=== PATIENT | female | born 1940 | race American Indian/Alaskan Native ===

== ENCOUNTER 2019-03-05 09:01 | Inpatient (IN) | payer MEDICARE ==
--- NOTE | 2019-03-05 09:56 | Emergency Department Report ---
ED Abdominal Pain HPI - General Chief Complaint: Tube Replacement Stated Complaint: FEEDING TUBE HAS DISCHARGE/PAINFUL Time Seen by Provider: 03/05/19 09:39 Source: patient Mode of arrival: Stretcher Limitations: No Limitations - History of Present Illness Initial Comments: 79-year-old female with past medical history throat cancer, hypertension, hypoth yroidism, and PEG tube feeding dependence since 2018 presents to the hospital complaining of drainage from PEG tube stoma and skin irritation. Daughter at bedside is concerned about infection. They were [facility] ago for the same. At that time patient was have a brownish red discharge from the stoma. Now patient is having brownish red and bilious discharge from the stoma site. Pain complains of 10/10 irritation to the skin at the area as well as left upper quadrant pain. Patient occasionally drinks water by mouth but is PEG dependent tube feeds and meds. She did receive an infusion of her tube feeds throughout the night last night. She is scheduled to have the PEG tube checked with Gastrografin study on March 17. Severity scale (0 -10): 10 - Related Data Allergies Allergy/AdvReac Type Severity Reaction Status Date / Time No Known Allergies Allergy Verified 03/05/19 10:06 ED Review of Systems ROS: Stated complaint: FEEDING TUBE HAS DISCHARGE/PAINFUL Other details as noted in HPI Comment: All other systems reviewed and negative ED Past Medical Hx - Past Medical History Previous Medical History?: Yes Hx Hypertension: Yes Hx Heart Attack/AMI: Yes (2012) Hx of Cancer: Yes (throat) Additional medical history: Hypothyroidism - Surgical History Past Surgical History?: Yes Additional Surgical History: Peg tube 2018 - Social History Smoking Status: Former Smoker Substance Use Type: None ED Physical Exam - General Limitations: No Limitations - Other Other exam information: General: No acute distress Head: Atraumatic Eyes: normal appearance ENT: Moist mucous membranes Neck: Normal appearance, no midline tenderness Chest: Clear to auscultation bilaterally CV: Regular rate and rhythm Abdomen: Soft, normal bowel sounds,upper midline vertical scar. LUQ upper quadrant feeding tube with erythematous exoriated skin at area of peg bumper. Tendereness to LUQ lateral to feeding tube. no rebound or garuding Back: Normal inspection Extremity: Normal inspection infection, full range of motion Neuro: Alert no facial asymmetry, speech clear, no gross motor sensory deficit Psych: Appropriate behavior Skin: No rash ED Course Vital Signs 03/05/19 03/05/19 09:32 11:30 Temperature 98.1 F Pulse Rate 85 83 Respiratory 20 Rate Blood Pressure 134/71 117/65 [Right] O2 Sat by Pulse 99 99 Oximetry - Consultations Consultation #1: 03/05/19 case d/w Dr Pabon (GI) who suggested surgery consult given that it is a gj tube case d/w Dr Hendrix who suggests deflating balloon ED Medical Decision Making - Lab Data Result diagrams: 03/05/19 11:00 03/05/19 09:53 - Radiology Data Radiology results: report reviewed ct abd/pelvis IV contrast: reviewed, see report - Medical Decision Making gj tube stoma leakage with nonobstructing small bowel intussuseption GI Dr Pabon came to bedside they do not place or mangage gj tubes bumper secured to skin with tape (antibiotic ointment/guaze and skin tape applied to bumper) balloon deflated pt to be admitted ivf for dehydration provided. - Differential Diagnosis tube displacement, infection, obstruction Critical Care Time: No Critical care attestation.: If time is entered above; I have spent that time in minutes in the direct care o f this critically ill patient, excluding procedure time. ED Disposition Clinical Impression: Malfunctioning jejunostomy tube, Intussusception intestine, Dehydration, Skin excoriation Disposition: OP ADMIT IP TO THIS HOSP Is pt being admited?: Yes Condition: Stable Time of Disposition: 15:50 (Dr oleary/hosp)
[2019-03-05 11:15] LABS: Basophils % (Auto) 0.4 % (0.0-1.8); Eosinophils # (Auto) 0.1 K/mm3 (0.0-0.4); Eosinophils % (Auto) 1.6 % (0.0-4.3); Hematocrit 36.2 % (30.3-42.9); Hemoglobin 12.7 gm/dl (10.1-14.3); Lymphocytes # (Auto) 0.7 K/mm3 (1.2-5.4); Mean Corpuscular HGB Conc 35 % (30-34); Mean Corpuscular Volume 106 fl (79-97); Monocytes # (Auto) 0.6 K/mm3 (0.0-0.8); Monocytes % (Auto) 8.8 % (0.0-7.3); Platelet Count 156 K/mm3 (140-440); Red Blood Count 3.42 M/mm3 (3.65-5.03); Red Cell Distribution Width 12.5 % (13.2-15.2)
[2019-03-05 11:30] LABS: Calcium 9.8 mg/dL (8.4-10.2)
[2019-03-05] MEDS ORDERED: SODIUM CHLORIDE 0.9% 1000 ML 1,000 ML IV ONE (11:40)
[2019-03-05] MEDS ORDERED: SODIUM CHLORIDE 0.45% 1000 ML 1,000 ML IV SCH (12:00)
--- NOTE | 2019-03-05 12:49 | Cat Scan Report ---
CT abdomen pelvis w con INDICATION: luq pain, bilious d/c for peg stoma site, skin red. TECHNIQUE: All CT scans at this location are performed using the following dose modulation technique: Automated exposure control. CONTRAST: Omnipaque 300, 60 cc IV injection. COMPARISON: None available. CT ABDOMEN: Evaluation the parenchymal organs demonstrates benign-appearing renal cysts and a subcent imeter low-density splenic lesion. Prominent dilatation of the pancreatic duct measures 8 mm centrall y. There is mild pancreatic atrophy. A GJ tube has its balloon in the proximal jejunum and the tip within the small bowel more distally. T here is a focal intussusception just proximal to the balloon which is nonobstructing. The balloon dis tends the jejunal cavity. CT PELVIS: 2.3 cm left ovarian cyst. Negative for pelvic mass, fluid collection or inflammation. A sm all amount of pelvic free fluid is present. IMPRESSION: 1. GJ tube with tip at the mid/distal small bowel. A focal, nonobstructing intussusception is seen ad jacent to the balloon which distends the jejunal cavity. 2. Prominent dilatation of the pancreatic duct of uncertain etiology. The most likely etiology is non visualized tumor or central stenosis. Signer Name: Keron Thomas MD Signed: 03/05/2019 12:45 PM Workstation Name: [id number]
--- NOTE | 2019-03-05 20:24 | History and Physical Report ---
History of Present Illness Date of examination: 03/05/19 Date of admission: 03/05/19 15:58 Chief complaint: Abdominal pain for 3 days Malfunctioning GJ tube 3 days History of present illness: 79-year-old female with history of hypertension, hypothyroidism and GJ tube because of severe dysphagia following throat cancer chemotherapy and radiation comes in for malfunction of GJ tube. Patient has been having pain at the GJ tube site and distally whenever food was being sent in. Also some discharge from GJ tube site which is consistent with bile. No fever or chills. Patient has periumbilical and left upper quadrant pain. Pain is about 6 on a scale of 1-10. No chest pain or shortness of breath. Past Medical History Previous Medical History?: Yes Hypertension: Yes Heart Attack/AMI: Yes (2011) Cancer: Yes (throat)--completed chemotherapy and radiation therapy-in remission Additional medical history: Hypothyroidism Surgical History Past Surgical History?: Yes Additional Surgical History: Peg tube followed by GJ tube and 2018. Patient had problems with initial PEG tube and there was drainage at the site. Social History Smoking Status: Former Smoker Substance Use Type: None Family history HTN Review of Systems ROS: Stated complaint: FEEDING TUBE HAS DISCHARGE/PAINFUL Other details as noted in HPI Comment: All other systems reviewed and negative Medications and Allergies Allergies Allergy/AdvReac Type Severity Reaction Status Date / Time No Known Allergies Allergy Verified 03/05/19 10:06 Exam - Constitutional Vitals: Temp Pulse Resp BP Pulse Ox 98.1 F 83 20 117/65 99 03/05/19 09:32 03/05/19 11:30 03/05/19 09:32 03/05/19 11:30 03/05/19 11:30 General appearance: Present: no acute distress, well-nourished - EENT Eyes: Present: PERRL ENT: hearing intact, clear oral mucosa - Neck Neck: Present: supple, normal ROM - Respiratory Respiratory effort: normal Respiratory: bilateral: CTA - Cardiovascular Heart rate: 78 Rhythm: regular Heart Sounds: Present: S1 & S2. Absent: rub, click - Extremities Extremities: no ischemia, pulses intact, pulses symmetrical, No edema Peripheral Pulses: within normal limits - Abdominal General gastrointestinal: Present: soft, non-tender, non-distended, normal bowel sounds Localized gastrointestinal: tender: LUQ (No guarding), epigastric periumbilical (Drainage from GJ tube site) Female genitourinary: Present: normal - Integumentary Integumentary: Present: clear, warm, dry - Musculoskeletal Musculoskeletal: generalized weakness - Psychiatric Psychiatric: appropriate mood/affect, intact judgment & insight - Neurologic Neurologic: CNII-XII intact, moves all extremities - Allied Health Allied health notes reviewed: nursing, case management Results - Labs CBC & Chem 7: 03/05/19 11:00 03/05/19 09:53 Labs: Laboratory Last Values WBC 6.4 K/mm3 (4.5-11.0) 03/05/19 11:00 RBC 3.42 M/mm3 (3.65-5.03) L 03/05/19 11:00 Hgb 12.7 gm/dl (10.1-14.3) 03/05/19 11:00 Hct 36.2 % (30.3-42.9) 03/05/19 11:00 MCV 106 fl (79-97) H 03/05/19 11:00 MCH 37 pg (28-32) H 03/05/19 11:00 MCHC 35 % (30-34) H 03/05/19 11:00 RDW 12.5 % (13.2-15.2) L 03/05/19 11:00 Plt Count 156 K/mm3 (140-440) 03/05/19 11:00 Lymph % (Auto) 11.0 % (13.4-35.0) L 03/05/19 11:00 [place] % (Auto) 8.8 % (0.0-7.3) H 03/05/19 11:00 Eos % (Auto) 1.6 % (0.0-4.3) 03/05/19 11:00 Baso % (Auto) 0.4 % (0.0-1.8) 03/05/19 11:00 Lymph # 0.7 K/mm3 (1.2-5.4) L 03/05/19 11:00 [place] # 0.6 K/mm3 (0.0-0.8) 03/05/19 11:00 Eos # 0.1 K/mm3 (0.0-0.4) 03/05/19 11:00 Baso # 0.0 K/mm3 (0.0-0.1) 03/05/19 11:00 Seg Neutrophils % 78.2 % (40.0-70.0) H 03/05/19 11:00 Seg Neutrophils # 5.0 K/mm3 (1.8-7.7) 03/05/19 11:00 Sodium 148 mmol/L (137-145) H 03/05/19 09:53 Potassium 4.2 mmol/L (3.6-5.0) 03/05/19 09:53 Chloride 103.7 mmol/L (98-107) 03/05/19 09:53 Carbon Dioxide 21 mmol/L (22-30) L 03/05/19 09:53 Anion Gap 28 mmol/L 03/05/19 09:53 BUN 42 mg/dL (7-17) H 03/05/19 09:53 Creatinine 1.4 mg/dL (0.7-1.2) H 03/05/19 09:53 Estimated GFR 44 ml/min 03/05/19 09:53 BUN/Creatinine Ratio 30 % 03/05/19 09:53 Glucose 100 mg/dL (65-100) 03/05/19 09:53 Calcium 9.8 mg/dL (8.4-10.2) 03/05/19 09:53 Total Bilirubin 0.60 mg/dL (0.1-1.2) 03/05/19 09:53 AST 41 units/L (5-40) H 03/05/19 09:53 ALT 26 units/L (7-56) 03/05/19 09:53 Alkaline Phosphatase 69 units/L (35-129) 03/05/19 09:53 Total Protein 8.3 g/dL (6.3-8.2) H 03/05/19 09:53 Albumin 4.0 g/dL (3.9-5) 03/05/19 09:53 Albumin/Globulin Ratio 0.9 % 03/05/19 09:53 - Imaging and Cardiology CT scan - abdomen: report reviewed Imaging and Cardiology: CT abdomen and pelvis GJ tube with tip at the mid/distal small bowel. A focal nonobstructing intussusception is seen adjacent to the balloon with distance jejunal cavity. Prominent dilatation of the pancreatic duct of uncertain etiology. The most likely etiology is non-visualized tumor or central stenosis. Assessment and Plan Advance Directives: Yes (Full code) VTE prophylaxis?: Chemical Plan of care discussed with patient/family: Yes - Patient Problems (1) Malfunctioning jejunostomy tube Current Visit: Yes Status: Acute Plan to address problem: GI consult requested GJ tube may have to be replaced (2) Dehydration Current Visit: Yes Status: Acute Plan to address problem: IV fluids for now (3) Intussusception intestine Current Visit: Yes Status: Acute Plan to address problem: Intussusception is nonobstructing Surgery consult requested We will keep the patient n.p.o. (4) Hypernatremia Current Visit: Yes Status: Acute Plan to address problem: IV D5W for now Recheck sodium levels (5) JOHNNY (acute kidney injury) Current Visit: Yes Status: Acute Plan to address problem: IV fluids for now Recheck creatinine level Vasomotor nephropathy (6) Hypertension Current Visit: Yes Status: Chronic Qualifiers: Hypertension type: essential hypertension Qualified Code(s): I10 - Es sential (primary) hypertension Plan to address problem: Catapres patch initiated (7) DVT prophylaxis Current Visit: Yes Status: Acute Plan to address problem: On heparin and GI prophylaxis
[2019-03-05] MEDS ORDERED: METOCLOPRAMIDE 10 MG/2 ML INJ IV PRN ×2 (20:42→20:46)
[2019-03-05] MEDS ORDERED: ONDANSETRON 4 MG/2 ML INJ IV PRN (20:42)
[2019-03-05] MEDS ORDERED: HYDROmorphone 1 MG/1 ML INJ IV PRN (20:42)
[2019-03-05] MEDS ORDERED: ACETAMINOPHEN 325 MG TAB PO PRN (20:42)
[2019-03-05] MEDS: D5W/0.45% NACL 1,000 ML IV SCH (21:40)
[2019-03-05] MEDS: FAMOTIDINE 20 MG/2 ML INJ IV SCH (21:41)
[2019-03-05] MEDS: HEPARIN 5,000 UNIT/1 ML VIAL SUB-Q SCH ×2 (21:43→21:50)
[2019-03-05] MEDS ORDERED: cloNIDine TTS 0.1 MG/24 HR PATCH TD SCH (22:00)
[2019-03-05] MEDS ORDERED: FAMOTIDINE 20 MG/2 ML INJ IV SCH (22:00)
--- NOTE | 2019-03-06 08:21 | Consultation ---
History of Present Illness Consult date: 03/06/19 Reason for consult: other (leaking GJ tube with intussussception) Chief complaint: abdominal pain - History of present illness History of present illness: 79 year old female with a history of GJ tube placement 2018 for dysphagia after surgery and adjuvant therapy for throat cancer. Recently she and her family noticed bilious drainage around the tube, and increased left upper quadrant pain. She had a CT scan that showed an non-obstructing jejunal intussussception proximal to the tube balloon. The balloon was deflated in the ED and she was admitted for observation. Past History Past Medical History: other (hx of throat CA, thyroid disease) Past Surgical History: Other (unclear surgery for 'throat' cancer, and GJ tube placement) Social history: lives with family Medications and Allergies Allergies Allergy/AdvReac Type Severity Reaction Status Date / Time No Known Allergies Allergy Verified 03/05/19 10:06 Active Meds: Active Medications Acetaminophen (Tylenol) 650 mg PO Q4H PRN PRN Reason: Pain MILD(1-3)/Fever >100.5/TOURE Clonidine HCl (Catapres-Tts Patch) 0.1 mg TD Strickland [facility] Last Admin: 03/05/19 23:20 Dose: 0.1 mg Documented by: Famotidine (Pepcid) 10 mg IV BID [facility] Last Admin: 03/05/19 21:41 Dose: 10 mg Documented by: Heparin Sodium (Porcine) (Heparin) 5,000 unit SUB-Q Q12HR [facility] Last Admin: 03/05/19 21:50 Dose: Not Given Documented by: Hydromorphone HCl (Dilaudid) 0.25 mg IV Q3H PRN PRN Reason: Pain, Moderate (4-6) Last Admin: 03/05/19 21:43 Dose: 0.25 mg Documented by: Dextrose/Sodium Chloride (D5/0.45ns) 1,000 mls @ 75 mls/hr IV DIRECT [facility] Last Admin: 03/05/19 21:40 Dose: 75 mls/hr Documented by: Metoclopramide HCl (Reglan) 5 mg IV Q6H PRN PRN Reason: Nausea And Vomiting Ondansetron HCl (Zofran) 4 mg IV Q3H PRN PRN Reason: Nausea And Vomiting Sodium Chloride (Sodium Chloride Flush Syringe 10 Ml) 10 ml IV BID [facility] Last Admin: 03/05/19 21:43 Dose: 10 ml Documented by: Sodium Chloride (Sodium Chloride Flush Syringe 10 Ml) 10 ml IV PRN PRN PRN Reason: LINE FLUSH Review of Systems - Constitutional weight loss - Gastrointestinal abdominal pain Exam Vital Signs Temp Pulse Resp BP Pulse Ox 98.1 F 85 20 134/71 99 03/05/19 09:32 03/05/19 09:32 03/05/19 09:32 03/05/19 09:32 03/05/19 09:32 - General physical appearance Positive: no distress, moderate pain, cathetic - Respiratory Positive: normal expansion, normal respiratory effort - Extremities Extremity abnormal: other (right hand and forearm swelling from infiltrated IV, IV removed already) - Abdomen Abdomen: Present: soft, tender, guarding, other (GJ tube in place with no active drainage at this time, area tender to touch, mild skin irritation around gastrostomy site, well healed sternal scar). Absent: rigid Results - Labs 03/05/19 11:00 03/05/19 09:53 Abnormal lab results 03/05/19 03/05/19 Range/Units 09:53 11:00 RBC 3.42 L (3.65-5.03) M/mm3 MCV 106 H (79-97) fl MCH 37 H (28-32) pg MCHC 35 H (30-34) % RDW 12.5 L (13.2-15.2) % Lymph % (Auto) 11.0 L (13.4-35.0) % [place] % (Auto) 8.8 H (0.0-7.3) % Lymph # 0.7 L (1.2-5.4) K/mm3 Seg Neutrophils % 78.2 H (40.0-70.0) % Sodium 148 H (137-145) mmol/L Carbon Dioxide 21 L (22-30) mmol/L BUN 42 H (7-17) mg/dL Creatinine 1.4 H (0.7-1.2) mg/dL AST 41 H (5-40) units/L Total Protein 8.3 H (6.3-8.2) g/dL Diabetes panel 03/05/19 Range/Units 09:53 Sodium 148 H (137-145) mmol/L Potassium 4.2 (3.6-5.0) mmol/L Chloride 103.7 (98-107) mmol/L Carbon Dioxide 21 L (22-30) mmol/L BUN 42 H (7-17) mg/dL Creatinine 1.4 H (0.7-1.2) mg/dL Glucose 100 (65-100) mg/dL Calcium 9.8 (8.4-10.2) mg/dL AST 41 H (5-40) units/L ALT 26 (7-56) units/L Alkaline Phosphatase 69 (35-129) units/L Total Protein 8.3 H (6.3-8.2) g/dL Albumin 4.0 (3.9-5) g/dL Calcium panel 03/05/19 Range/Units 09:53 Calcium 9.8 (8.4-10.2) mg/dL Albumin 4.0 (3.9-5) g/dL Pituitary panel 03/05/19 Range/Units 09:53 Sodium 148 H (137-145) mmol/L Potassium 4.2 (3.6-5.0) mmol/L Chloride 103.7 (98-107) mmol/L Carbon Dioxide 21 L (22-30) mmol/L BUN 42 H (7-17) mg/dL Creatinine 1.4 H (0.7-1.2) mg/dL Glucose 100 (65-100) mg/dL Calcium 9.8 (8.4-10.2) mg/dL Adrenal panel 03/05/19 Range/Units 09:53 Sodium 148 H (137-145) mmol/L Potassium 4.2 (3.6-5.0) mmol/L Chloride 103.7 (98-107) mmol/L Carbon Dioxide 21 L (22-30) mmol/L BUN 42 H (7-17) mg/dL Creatinine 1.4 H (0.7-1.2) mg/dL Glucose 100 (65-100) mg/dL Calcium 9.8 (8.4-10.2) mg/dL Total Bilirubin 0.60 (0.1-1.2) mg/dL AST 41 H (5-40) units/L ALT 26 (7-56) units/L Alkaline Phosphatase 69 (35-129) units/L Total Protein 8.3 H (6.3-8.2) g/dL Albumin 4.0 (3.9-5) g/dL - Imaging CT scan - abdomen: report reviewed, image reviewed CT scan - pelvis: report reviewed, image reviewed Assessment and Plan small bowel intussusception with mal functioning GJ tube in the context of un clear foregut GI anatomy. No complete bowel obstruction at this time. stable, and afebrile. will coordinate small bowel series to both delineate anatomy (unclear previous surgery for previous 'throat' cancer), and interrogate GJ tube. If anatomy is appropriate and no surgical intervention is planned, will consult with IR to change out GJ tube for a shorter tube, where hopefully the balloon can be repositioned to sit in the stomach. will discuss with daughter when she arrives. Pt appears to have significant memory and cognitive deficits that the daughter can help with having her cooperate to facilitate care.
--- NOTE | 2019-03-06 09:03 | Progress Note ---
Assessment and Plan 79-year-old female with history of hypertension, hypothyroidism and GJ tube because of severe dysphagia following throat cancer chemotherapy and radiation comes in for malfunction of GJ tube. Patient has been having pain at the GJ tube site and distally whenever food was being sent in. Also some discharge from GJ tube site which is consistent with bile. No fever or chills. Patient has periumbilical and left upper quadrant pain. Pain is about 6 on a scale of 1-10. No chest pain or shortness of breath. Patient Problems (1) Malfunctioning jejunostomy tube Current Visit: Yes Status: Acute Plan to address problem: GI consult requested GJ tube replaced (2) Dehydration Current Visit: Yes Status: Acute Plan to address problem: IV fluids (3) Intussusception intestine Current Visit: Yes Status: Acute Plan to address problem: Intussusception is nonobstructing Surgery consult requested We will keep the patient n.p.o. Discussed with the surgeon. Conservative management for now (4) Hypernatremia Current Visit: Yes Status: Acute Plan to address problem: IV D5W for now Recheck sodium levels (5) JOHNNY (acute kidney injury) Current Visit: Yes Status: Acute Plan to address problem: IV fluids for now Recheck creatinine level Vasomotor nephropathy Prophylaxis with Lovenox and GI with Pepcid Subjective Date of service: 03/06/19 Principal diagnosis: intussusception, malfunction jejunostomy tube, addition Interval history: Patient lying quietly in bed in no obvious distress. No chest pain or shortness of breath. Objective - Constitutional Vitals: Vital Signs - 12hr 03/05/19 03/05/19 03/05/19 21:43 22:00 22:13 Temperature Pulse Rate Respiratory 16 16 Rate Respiratory 16 Rate [abd] Blood Pressure O2 Sat by Pulse Oximetry 03/05/19 03/05/19 03/06/19 23:00 23:20 04:51 Temperature 98.3 F Pulse Rate 74 Respiratory 16 16 Rate Respiratory Rate [abd] Blood Pressure 114/71 119/68 O2 Sat by Pulse 97 Oximetry 03/06/19 08:43 Temperature Pulse Rate Respiratory 16 Rate Respiratory Rate [abd] Blood Pressure O2 Sat by Pulse 97 Oximetry General appearance: Present: no acute distress, cachectic - EENT Eyes: PERRL, EOM intact ENT: hearing intact, clear oral mucosa Ears: bilateral: normal - Neck Neck: supple, normal ROM - Respiratory Respiratory effort: normal Respiratory: bilateral: CTA - Cardiovascular Rhythm: regular Heart Sounds: Present: S1 & S2. Absent: gallop, rub Extremities: pulses intact, No edema, normal color, Full ROM - Gastrointestinal General gastrointestinal: Present: soft, non-tender, non-distended, normal bowel sounds, other (gastrojejunostomy tube in place) - Integumentary Integumentary: clear, warm, dry - Musculoskeletal Musculoskeletal: generalized weakness - Neurologic Neurologic: moves all extremities - Psychiatric Psychiatric: memory intact, appropriate mood/affect, intact judgment & insight - Labs CBC & Chem 7: 03/05/19 11:00 03/05/19 09:53 Labs: Abnormal lab results 03/05/19 03/05/19 Range/Units 09:53 11:00 RBC 3.42 L (3.65-5.03) M/mm3 MCV 106 H (79-97) fl MCH 37 H (28-32) pg MCHC 35 H (30-34) % RDW 12.5 L (13.2-15.2) % Lymph % (Auto) 11.0 L (13.4-35.0) % [place] % (Auto) 8.8 H (0.0-7.3) % Lymph # 0.7 L (1.2-5.4) K/mm3 Seg Neutrophils % 78.2 H (40.0-70.0) % Sodium 148 H (137-145) mmol/L Carbon Dioxide 21 L (22-30) mmol/L BUN 42 H (7-17) mg/dL Creatinine 1.4 H (0.7-1.2) mg/dL AST 41 H (5-40) units/L Total Protein 8.3 H (6.3-8.2) g/dL
--- NOTE | 2019-03-06 09:16 | Event Note ---
Date: 03/06/19 Spoke with daughter. Treatment for throat cancer verified by her as no surgical intervention. She did have chemo and radiation. The GJ tube was placed a few months ago, but was the sixth or seventh exchange for previous G tubes that had persistent leakage problems. She was supposed to go to [place] a few days ago to get it checked but was turned around due to diversion. I spoke with Dr. Santos who will evaluate and exchange tube.
[2019-03-06] MEDS: HEPARIN 5,000 UNIT/1 ML VIAL SUB-Q SCH ×2 (10:14→22:20)
[2019-03-06] MEDS: FAMOTIDINE 20 MG/2 ML INJ IV SCH ×2 (10:16→22:19)
[2019-03-06] MEDS ORDERED: LIDOCAINE 1%/EPINEPHRINE 1:100,000 VIAL (20 ML) INFILTRATI ONE (16:13)
[2019-03-06] MEDS ORDERED: SODIUM CHLORIDE IRRI 500 ML 500 ML IR ONE (16:13)
[2019-03-06] MEDS ORDERED: MIDAZOLAM 2 MG/2 ML INJ ONE (16:13)
[2019-03-06] MEDS ORDERED: fentaNYL 100 MCG/2 ML INJ ONE (16:13)
[2019-03-06] MEDS ORDERED: SODIUM CHLORIDE 0.9% 250ML 250 ML ONE (16:33)
[2019-03-06] MEDS ORDERED: ceFAZolin/Water 2 GM/20 ML 2 GM/20 ML SYRINGE IV ONE (16:43)
--- NOTE | 2019-03-06 17:56 | Post Operative Note ---
Date of procedure: 03/06/19 Pre-op diagnosis: GJ tube malfunction Post-op diagnosis: other (GJ tube malfunction, ileus) Findings: Ileus noted No 22 Fr GJ tube available, therefore, 20 Fr J tube used. Procedure: Fluoroscopic guided exchange of a 22 Fr GJ tube for a 20 Fr J tube Anesthesia: local (w/ conscious sedation) Surgeon: JAKE HENDERSON Estimated blood loss: minimal Condition: stable Disposition: floor
--- NOTE | 2019-03-06 17:58 | Operative Report ---
Operative Report Operative Report: EXAM: 22 [place]ones[place] GJ tube exchange for 20 Gabonese J-tube DATE: 03/06/19 CORRECTIONS CASEWORKER: JAKE HENDERSON MD INDICATION: GJ tube malfunction, request by surgery for shorter tube MEDICATIONS: Please see nursing report for full details. DEVICES: No 22 Gabonese or 20 Gabonese gastrojejunostomy tubes are available 20 Gabonese jejunostomy tube is available CONTRAST: Please see medical lab scientist report for full details PROCEDURE: The risks, benefits, and alternatives were discussed with family; written informed consent was obtained. Fluoroscopy was used to evaluate where the current tube is, which is within the ilium, and CT was previously performed which demonstrated that the gastrojejunostomy tube balloon was in jejunum with an associated intussusception. The balloon was deflated by surgery. Since no 22 [place]e were 20 Gabonese gastrojejunostomy tubes were available, a 20 [place]e jejunostomy tube was utilized. This was explained to the daughter. Contrast was attempted to be injected through the gastrojejunostomy tube, but the lumens were clogged. Over a 0.035 inch stiff angled wire and the wire was passed into the ilium. The gastrojejunostomy tube was then removed over the wire. A jejunostomy tube was advanced over the wire and the balloon was inflated and retracted into the stomach. The bumper was pushed down and the bumper was then secured with a 0 silk. Contrast wasn't demented to the jejunostomy tube into the jejunum, but the contrast did not pass into the ilium despite waiting for 5 minutes. Discussed this with the surgeon spine to her the patient has an ileus. She will obtain an x-ray in the morning for further evaluation. At this point, saline was infused through the jejunostomy tube port, and 4 x 4 was placed underneath the bumper. Patient tolerated the procedure well. No immediate postprocedural complication. FINDINGS: Ileus as described above IMPRESSION: Successful gastrojejunostomy tube exchange for a jejunostomy tube.
[2019-03-06] MEDS: D5W/0.45% NACL 1,000 ML IV SCH (18:43)
--- NOTE | 2019-03-07 08:33 | XRay Report ---
ABDOMEN 1 VIEW(S) INDICATION / CLINICAL INFORMATION: follow up after tube exchange - ileus. COMPARISON: CT abdomen and pelvis 03/05/2019. FINDINGS: TUBES / LINES: NG tube unchanged. BOWEL GAS PATTERN: Residual contrast material within the colon with overall moderate colonic stool. N o bowel distention. ADDITIONAL FINDINGS: No significant additional findings. Signer Name: Keron Thomas MD Signed: 03/07/2019 8:28 AM Workstation Name: [id number]
[2019-03-07 09:23] LABS: Basophils % (Auto) 0.3 % (0.0-1.8); Eosinophils # (Auto) 0.1 K/mm3 (0.0-0.4); Eosinophils % (Auto) 3.7 % (0.0-4.3); Hematocrit 33.9 % (30.3-42.9); Hemoglobin 11.5 gm/dl (10.1-14.3); Lymphocytes # (Auto) 0.6 K/mm3 (1.2-5.4); Lymphocytes % (Auto) 24.8 % (13.4-35.0); Mean Corpuscular HGB Conc 34 % (30-34); Mean Corpuscular Volume 108 fl (79-97); Monocytes # (Auto) 0.2 K/mm3 (0.0-0.8); Monocytes % (Auto) 9.1 % (0.0-7.3); Platelet Count 144 K/mm3 (140-440); Red Blood Count 3.14 M/mm3 (3.65-5.03); Red Cell Distribution Width 12.5 % (13.2-15.2)
[2019-03-07 09:49] LABS: Albumin 3.3 g/dL (3.9-5); Calcium 9.2 mg/dL (8.4-10.2)
[2019-03-07] MEDS: FAMOTIDINE 20 MG/2 ML INJ IV SCH (11:09)
[2019-03-07] MEDS: HEPARIN 5,000 UNIT/1 ML VIAL SUB-Q SCH (11:09)
[2019-03-07 11:34] VITALS: BP 130/66
--- NOTE | 2019-03-07 12:11 | Progress Note ---
Assessment and Plan mal-positioned GJ tube, replaced to a J tube. doing well can start feeding through it and d/c home. should follow up with Bailey for further tube management since they have been maintaining it and see her regularly. Subjective Date of service: 03/07/19 Patient Reports: Positive: no new complaints, other (pt had an uneventful feeding tube exchange, question of ileus, xray of abdomen this morning shows no obstruction or ileus. ) Objective Vital Signs - 12hr 03/07/19 03/07/19 03/07/19 00:11 05:52 11:24 Temperature 97.7 F 98.0 F 98.8 F Pulse Rate 63 75 74 Respiratory 16 16 18 Rate Blood Pressure 116/58 112/66 130/66 O2 Sat by Pulse 97 95 95 Oximetry - General physical appearance no distress - Abdomen soft, other (feeding tube in place) - Labs 03/07/19 09:00 03/07/19 09:00 Diabetes panel 03/07/19 Range/Units 09:00 Sodium 145 (137-145) mmol/L Potassium 4.1 (3.6-5.0) mmol/L Chloride 109.3 H (98-107) mmol/L Carbon Dioxide 23 (22-30) mmol/L BUN 22 H (7-17) mg/dL Creatinine 1.2 (0.7-1.2) mg/dL Glucose 108 H (65-100) mg/dL Calcium 9.2 (8.4-10.2) mg/dL AST 32 (5-40) units/L ALT 17 (7-56) units/L Alkaline Phosphatase 57 (35-129) units/L Total Protein 6.7 (6.3-8.2) g/dL Albumin 3.3 L (3.9-5) g/dL Calcium panel 03/07/19 Range/Units 09:00 Calcium 9.2 (8.4-10.2) mg/dL Phosphorus 3.40 (2.5-4.5) mg/dL Albumin 3.3 L (3.9-5) g/dL Pituitary panel 03/07/19 Range/Units 09:00 Sodium 145 (137-145) mmol/L Potassium 4.1 (3.6-5.0) mmol/L Chloride 109.3 H (98-107) mmol/L Carbon Dioxide 23 (22-30) mmol/L BUN 22 H (7-17) mg/dL Creatinine 1.2 (0.7-1.2) mg/dL Glucose 108 H (65-100) mg/dL Calcium 9.2 (8.4-10.2) mg/dL Adrenal panel 03/07/19 Range/Units 09:00 Sodium 145 (137-145) mmol/L Potassium 4.1 (3.6-5.0) mmol/L Chloride 109.3 H (98-107) mmol/L Carbon Dioxide 23 (22-30) mmol/L BUN 22 H (7-17) mg/dL Creatinine 1.2 (0.7-1.2) mg/dL Glucose 108 H (65-100) mg/dL Calcium 9.2 (8.4-10.2) mg/dL Total Bilirubin 0.50 (0.1-1.2) mg/dL AST 32 (5-40) units/L ALT 17 (7-56) units/L Alkaline Phosphatase 57 (35-129) units/L Total Protein 6.7 (6.3-8.2) g/dL Albumin 3.3 L (3.9-5) g/dL
[2019-03-07] MEDS ORDERED: SODIUM BICARBONATE 325 MG TAB FEEDTUBE PRN ×2 (13:04→13:23)
[2019-03-07] MEDS ORDERED: LIPASE 10,500/PROTEASE 25,000/AMYLASE 43,750 (UNITS) DR CAP FEEDTUBE PRN ×2 (13:04→13:23)
[2019-03-07] MEDS ORDERED: SIMPLE SYRUP 15 ML FEEDTUBE PRN ×4 (13:04→13:23)
--- NOTE | 2019-03-07 16:20 | Discharge Summary ---
Providers - Providers Date of Admission: 03/07/19 08:42 Date of discharge: 03/07/19 Attending physician: LORRIE MCCOY 03/05/19 17:35 Consult to Physician [CONS] Urgent Comment: Consulting Provider: AKBAR THAO Physician Instructions: Reason For Exam: gj tube, nonobstructed intussusception 03/06/19 09:12 Consult to Interventional Radiology [CONS] Routine Consulting Provider: JAKE CANTRELL Reason For Exam: GJ tube evaluation and replacement Place consult to:: DR. CANTRELL Notified:: OFFICE Phone number called:: [phone] Was contact made?: Yes If yes, spoke with:: KELLY Time called:: 10:28 Comment:: SAMANTHA NOTIFIED 03/07/19 12:56 Consult to Dietitian/Nutrition [CONS] Routine Physician Instructions: May start Tf Reason For Exam: eval. for tube feeding Reason for Consult: Poor oral intake 03/07/19 13:23 Consult to Dietitian/Nutrition [CONS] Routine Physician Instructions: Assess nutrtn needs, initiate, modify, manage TF Reason For Exam: Reason for Consult: Write/Manage Tube Feeding Reason for Consult: Write/Manage Tube Feeding Primary care physician: PCP Hospitalization Reason for admission: mal functioning gastrojejunostomy tube Condition: Stable Pertinent studies: CT abdomen and pelvis that showed Chest x-ray CT abdomen and pelvis showed GJ tube with tip in the mid distal small bowel and non-obstructive intussusception Prominently dilated pancreatic duct on Procedures: Readjustment of the gastrojejunostomy tube and reattachment Hospital course: 79-year-old female with history of hypertension, hypothyroidism and GJ tube because of severe dysphagia following throat cancer chemotherapy and radiation comes in for malfunction of GJ tube. Patient has been having pain at the GJ tube site and distally whenever food was being sent in. Also some discharge from GJ tube site which is consistent with bile. No fever or chills. Patient has periumbilical and left upper quadrant pain. Pain is about 6 on a scale of 1-10. No chest pain or shortness of breath. Interventional radiology consult was obtained. GGT was adjusted. No melena phenotype. X-ray showed that the gastrojejunostomy was appropriately placed. Patient commenced with feeding via NG tube. Discussed with patient daughter was in the room without a discharge plan Disposition: DC-01 TO HOME OR SELFCARE - Discharge Diagnoses (1) JOHNNY (acute kidney injury) Status: Acute Comment: Due to vasomotor nephropathy (2) Dehydration Status: Acute (3) Hypernatremia Status: Acute (4) Intussusception intestine Status: Acute (5) Malfunctioning jejunostomy tube Status: Acute Core Measure Documentation - Palliative Care Palliative Care/ Comfort Measures: Not Applicable - Core Measures Any of the following diagnoses?: none Exam - Physical Exam Narrative exam: Constitutional: Well-nourished well-developed. In no distress Head: Normocephalic atraumatic Eyes: Pupils are equal round and reactive to light Nose: No enlarged turbinates, no septal deviation. Mouth: Moist mucous membranes. Neck: Supple no thyromegaly. No bruit. No JVD Heart: Regular rate and rhythm, S1-S2 normal. No rubs murmurs or gallop Lungs: Clear to auscultation bilaterally. no rales or rhonchi Abdomen: Soft, nontender. Gastrojejunostomy tube in place and functioning Extremities: No edema, no cyanosis, no clubbing. Neuro: Alert oriented Oriented x3. No focal sensory or motor deficit. Skin: No rashes or hyperpigmented spots Musculoskeletal system: No joint pain or swelling Hematological: No petechia or subcutanous hemorrhages. Immunological: No multiple septic spots on the skin Lymphatic: No generalized lymphadenopathy Psychiatry: Euthymic. Calm. - Constitutional Vitals: Temp Pulse Resp BP Pulse Ox 98.8 F 74 18 130/66 95 03/07/19 11:24 03/07/19 11:24 03/07/19 11:24 03/07/19 11:24 03/07/19 11:24 - Respiratory Respiratory effort: accessory muscle use Plan Activity: fall precautions Weight Bearing Status: Non-Weight Bearing Diet: regular Follow up with: DR ALVARO [Other] - 7 Days Prescriptions: cloNIDine-TTS PATCH [Catapres-Tts 0.1MG Patch] 0.1 mg TD Strickland #10 patch Lipase/Protease/Amylase [Walker Chow 10,500 Unit] 1 each FEEDTUBE PRN PRN #100 capsule PRN Reason: For Clogged Feeding Tube
== END 2019-03-07 17:45 | disposition home or self-care (01) | DRG 393 ==
LOC: ED 09:01 → 3A 15:58 → OBSVTOIN 03-07 08:42
PROVIDERS: ADMIT Internal Medicine; ATTEND Family Medicine
PROC: 0D2DXUZ Change Feeding Device in Lower Intestinal Tract, External Approach (ICD-10-PCS; principal; 2019-03-06)
DX: K94.23 Gastrostomy malfunction (principal); N17.0 Acute kidney failure with tubular necrosis; K56.1 Intussusception; T85.518A Breakdown (mechanical) of other gastrointestinal prosthetic devices, implants and grafts, initial encounter; E87.0 Hyperosmolality and hypernatremia; T14.8XXA Other injury of unspecified body region, initial encounter; K94.13 Enterostomy malfunction; E86.0 Dehydration; Y83.8 Other surgical procedures as the cause of abnormal reaction of the patient, or of later complication, without mention of misadventure at the time of the procedure; I10 Essential (primary) hypertension; E03.9 Hypothyroidism, unspecified; Y92.89 Other specified places as the place of occurrence of the external cause; I25.2 Old myocardial infarction; Y93.89 Activity, other specified; Y99.8 Other external cause status; Z82.49 Family history of ischemic heart disease and other diseases of the circulatory system
CPT/HCPCS: 36415; 49452; 74018; 74177; 80053; 82140; 83735; 84100; 85025; G0378; C1769; J0690; J1170; J1644; J2250; J3010; J7030; J7050; Q9967